=== PATIENT | male | born 1955 | race Caucasian/White ===

== ENCOUNTER 2017-03-13 08:29 | Day surgery (SDC) | payer SELFPAY ==
[~2017-03-13 08:29] MED LIST: Lactated Ringers 1,000 ML IV SCH
--- NOTE | 2017-03-13 09:46 | PCM.PREANE ---
Preanesthetic Assessment - Anesthesia/Transfusion/Family Hx Anesthesia History: Prior Anesthesia Reaction Other Type of Anesthesia Reaction Comment: very adgitated and agressive on awakening Family History of Anesthesia Reaction: No Transfusion History: No Prior Transfusion(s) - Review of Systems General: No Symptoms Pulmonary: No Symptoms Cardiovascular: No Symptoms Gastrointestinal: No Symptoms Neurological: No Symptoms Other: Reports: None - Physical Assessment NPO Status Date: 03/12/17 NPO Status Time: 21:00 O2 Sat by Pulse Oximetry: 94 Respiratory Rate: 16 Vital Signs: Last Vital Signs Temp 36.6 C 03/13/17 08:47 Pulse 73 03/13/17 08:47 Resp 16 03/13/17 08:47 BP 138/86 03/13/17 08:47 Pulse Ox 94 L 03/13/17 08:47 Height: 1.8 m Weight: 92.533 kg ASA Class: 2 Mental Status: Alert & Oriented x3 Airway Class: Mallampati = 3 Dentition: Reports: Dentures, Partial ROM/Head Extension: Full Lungs: Clear to Auscultation, Normal Respiratory Effort Cardiovascular: Regular Rate, Regular Rhythm - Lab Values: Laboratory Last Values WBC 7.68 K/uL (4.0-11.0) 03/13/17 08:55 RBC 5.83 M/uL (4.50-5.90) 03/13/17 08:55 Hgb 17.6 g/dL (13.0-17.0) H 03/13/17 08:55 Hct 50.3 % (38.0-50.0) H 03/13/17 08:55 MCV 86.3 fL (80.0-98.0) 03/13/17 08:55 MCH 30.2 pg (27.0-32.0) 03/13/17 08:55 MCHC 35.0 g/dL (31.0-37.0) 03/13/17 08:55 RDW Std Deviation 45.8 fl (28.0-62.0) 03/13/17 08:55 RDW Coeff of Cynthia 15 % (11.0-15.0) 03/13/17 08:55 Plt Count 220 K/uL (150-400) 03/13/17 08:55 MPV 10.50 fL (7.40-12.00) 03/13/17 08:55 Neut % (Auto) 66.1 % (48.0-80.0) 03/13/17 08:55 Lymph % (Auto) 20.8 % (16.0-40.0) 03/13/17 08:55 Taylor % (Auto) 10.2 % (0.0-15.0) 03/13/17 08:55 Eos % (Auto) 2.5 % (0.0-7.0) 03/13/17 08:55 Baso % (Auto) 0.4 % (0.0-1.5) 03/13/17 08:55 Neut # (Auto) 5.1 K/uL (1.4-5.7) 03/13/17 08:55 Lymph # (Auto) 1.6 K/uL (0.6-2.4) 03/13/17 08:55 Taylor # (Auto) 0.8 K/uL (0.0-0.8) 03/13/17 08:55 Eos # (Auto) 0.2 K/uL (0.0-0.7) 03/13/17 08:55 Baso # (Auto) 0.0 K/uL (0.0-0.1) 03/13/17 08:55 Nucleated RBC % 0.0 /100WBC 03/13/17 08:55 Nucleated RBCs # 0 K/uL 03/13/17 08:55 - Allergies Allergies/Adverse Reactions: Allergies Allergy/AdvReac Type Severity Reaction Status Date / Time No Known Allergies Allergy Verified 03/07/17 15:28 - Anesthesia Plan Pre-Op Medication Ordered: None - Acknowledgements Anesthesia Type Planned: General Anesthesia Pt an Appropriate Candidate for the Planned Anesthesia: Yes Alternatives and Risks of Anesthesia Discussed w Pt/Guardian: Yes Pt/Guardian Understands and Agrees with Anesthesia Plan: Yes Additional Comments: PMH smoker, PLAN: GET PreAnesthesia Questionnaire HEENT History: Reports: Hard of Hearing Other HEENT History: wears glasses, has upper and lower dentures Musculoskeletal History: Reports: Back Pain, Chronic, Fracture, RA Other Musculoskeletal History: hx of fx right knee - Past Surgical History Head Surgeries/Procedures: Reports: None HEENT Surgical History: Reports: Adenoidectomy, Tonsillectomy, Other (See Below) Other HEENT Surgeries/Procedures: hx of tympanoplasty Musculoskeletal Surgical History: Reports: ORIF Other Musculoskeletal Surgeries/Procedures:: right knee - SUBSTANCE USE Smoking Status *Q: Current Every Day Smoker Tobacco Use Within Last Twelve Months: Cigarettes, Smokeless Tobacco - HOME MEDS Home Medications: Home Meds Naproxen 500 mg PO ASDIRECTED PRN 03/07/17 [History] traMADol [Ultram] 50 mg PO ASDIRECTED PRN 03/07/17 [History] - CURRENT (IN HOUSE) MEDS Current Meds: Current Medications Lactated Ringer's (Ringers, Lactated) 1,000 mls @ 125 mls/hr IV ASDIRECTED JEAN Last Admin: 03/13/17 08:44 Dose: 125 mls/hr
[2017-03-13] MEDS ORDERED: Oxymetazoline 0.05% Nasal Spray 15 ML Bottle ONE ×2 (10:31→10:56)
[2017-03-13] MEDS ORDERED: EPINEPHrine 1 MG/ML SDV ONE (10:55)
[2017-03-13] MEDS ORDERED: Lidocaine 2% with EPINEPHrine 1:100,000 20 ML MDV ONE (10:59)
[2017-03-13] MEDS ORDERED: Propofol 200 MG/20 ML SDV ONE (11:01)
[2017-03-13] MEDS ORDERED: fentaNYL 100 MCG/2 ML SDV ONE (11:01)
[2017-03-13] MEDS ORDERED: Lidocaine 2% 5 ML SDV ONE (11:02)
[2017-03-13] MEDS ORDERED: diphenhydrAMINE 50 MG/ML SDV ONE (11:02)
[2017-03-13] MEDS ORDERED: Ondansetron 4 MG/2 ML SDV ONE (11:02)
--- NOTE | 2017-03-13 11:06 | PCM.HPR ---
H & P Addendum review - H & P Addendum Review Date of Original H & P: 02/28/17 Date Reviewed: 03/13/17 Time Reviewed: 10:30 Patient was Examined: No Changes
--- NOTE | 2017-03-13 11:15 | PCM.OPNOTE ---
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 He underwent an MRI - no suspicion of a vascular mass. Considering that he had undergone adenoidectomy as a child and his age - a mutual decision was made to perform a biopsy of the mass for histopathology. Procedure: An informed consent was obtained, time out was performed and the patient was laid supine on the operating table. General Anesthesia was administered. Right nasal cavity was decongested with Afrin soaked cottonoids. Bilateral nasal endoscopy was performed with a 0 degree rigid nasal endoscope - findings as above. Photo documentation was obtained. Biopsy of the mass was obtained from the right side with a Blakesley Ba forceps. Hemostasis was achieved. Specimen was sent for histopathology. This concluded the procedure and patient was handed over to anesthesia for recovery. Follow up in 1 week
[2017-03-13] MEDS ORDERED: ePHEDrine 50 MG/ML SDV ONE (11:41)
[2017-03-13] MEDS ORDERED: Midazolam 1 MG/ML 2 ML SDV IVPUSH ONE (12:30)
--- NOTE | 2017-03-13 14:21 | PCM.POSTAN ---
POST ANESTHESIA ASSESSMENT - PAIN Pain Score: 0
--- NOTE | 2017-03-13 15:09 | PCM48HPAN ---
Post Anesthesia Note - EVALUATION WITHIN 48HRS OF ANESTHETIC Vital Signs in Normal Range: Yes Patient Participated in Evaluation: Yes Respiratory Function Stable: Yes Airway Patent: Yes Cardiovascular Function Stable: Yes Hydration Status Stable: Yes Pain Control Satisfactory: Yes Nausea and Vomiting Control Satisfactory: Yes
== END 2017-03-13 13:00 | disposition home or self-care (01) ==
LOC: MW.SDS 08:29
PROVIDERS: ATTEND Otolaryngology
DX: J35.2 Hypertrophy of adenoids (principal); Q30.9 Congenital malformation of nose, unspecified; F17.210 Nicotine dependence, cigarettes, uncomplicated; Z90.89 Acquired absence of other organs; Z90.49 Acquired absence of other specified parts of digestive tract
CPT/HCPCS: 31237; 36415; 85025; 88305; A9270; J0171; J1200; J2405; J3010; J7120; 00160; J2704